=== PATIENT | male | born 1990 | race Caucasian/White ===

== ENCOUNTER 2016-09-01 18:29 | Emergency (ER) | payer BC, MEDICAID ==
[2016-09-01 18:34] VITALS: BP 139/92; PULSE 94; RESP 20; TEMP 98.4
[2016-09-01] MEDS ORDERED: IBUPROFEN 600 MG TAB PO STA (21:21)
[2016-09-01 21:54] LABS: Appearance,Urine Clear (Clear); Bilirubin,Urine Negative (Negative); Glucose,Urine (UA) Negative (Negative); Ketones,Urine Negative (Negative); Leukocyte Esterase,Urine Negative (Negative); Nitrite,Urine Negative (Negative); PH, Urine 6.5 (5.0-8.0); Protein,Urine Negative (Negative); Specific Gravity,Urine 1.016 (1.001-1.035); UA Billing (MACRO vs. MICRO) CHEM; Urobilinogen,Urine <2.0 mg/dL (<2.0)
--- NOTE | 2016-09-01 21:58 | ED ---
Recheck HPI - General Chief Complaint: Recheck/Abnormal Lab/Rx Stated Complaint: infection Time Seen by Provider: 09/01/16 20:46 Source: patient, RN notes reviewed Mode of arrival: ambulatory Limitations: no limitations - History of Present Illness Initial Comments: Patient is a 26-year-old male presents to the emergency room for evaluation. Patient states he's been having sore throat, congestion and swollen lymph nodes in his neck for the past month. Patient states he hasn't had health insurance was not able follow-up with a doctor until now. Patient states he has been taking [id number] cough medicine with no relief of symptoms. Patient denies any fevers. Patient states she has sore throat and ear pain. Patient states he is up to date on his immunizations. Patient denies receiving his influenza vaccine this year. Patient denies abdominal pain, nausea, vomiting, chest pain, shortness of breath. Patient also states he's having some mild burning while urinating. Patient states he has a history of UTI in the past and this feels somewhat similar. Patient states he has a history of syphilis many years ago. Patient denies any other history of STDs. Patient denies any trouble urinating or blood in urine. - Related Data Previous Rx's Medication Instructions Recorded Azithromycin [Zithromax Z-pack] 250 mg PO DIRECTED #6 tab 09/01/16 Allergies Allergy/AdvReac Type Severity Reaction Status Date / Time No Known Allergies Allergy Verified 09/01/16 18:34 Review of Systems ROS Statement: Those systems with pertinent positive or pertinent negative responses have been documented in the HPI. ROS Other: All systems not noted in ROS Statement are negative. Past Medical History Past Medical History: No Reported History Additional Past Medical History / Comment(s): gets headaches often, add dx in 1998 with depression was on meds then taken off of it. History of Any Multi-Drug Resistant Organisms: None Reported Past Surgical History: No Surgical Hx Reported Past Anesthesia/Blood Transfusion Reactions: No Reported Reaction Past Psychological History: ADD/ADHD, Anxiety, Depression Smoking Status: Former smoker Past Alcohol Use History: Occasional Additional Past Alcohol Use History / Comment(s): started smoking at age 21 smokes on and off a pack lasts him a month Past Drug Use History: None Reported - Past Family History Father Additional Family Medical History / Comment(s): smokes/drinks and does'nt go to dr. Mother Family Medical History: Diabetes Mellitus Additional Family Medical History / Comment(s): gallbladder removed General Exam - General Exam Comments Initial Comments: Sitting in exam room in no acute distress. Limitations: no limitations General appearance: alert, in no apparent distress Head exam: Present: atraumatic, normocephalic, normal inspection Eye exam: Present: normal appearance ENT exam: Present: normal exam, normal oropharynx, mucous membranes moist, TM's normal bilaterally, normal external ear exam Neck exam: Present: normal inspection, full ROM, lymphadenopathy (Bilateral anterior cervical) Respiratory exam: Present: normal lung sounds bilaterally. Absent: respiratory distress Cardiovascular Exam: Present: regular rate, normal rhythm, normal heart sounds Extremities exam: Present: normal inspection Back exam: Present: normal inspection Neurological exam: Present: alert, oriented X3, CN II-XII intact, normal gait Psychiatric exam: Present: normal affect, normal mood Skin exam: Present: warm, dry, intact, normal color. Absent: rash Course Vital Signs 09/01/16 18:32 Temperature 98.4 F Pulse Rate 94 Respiratory 20 Rate Blood Pressure 139/92 O2 Sat by Pulse 100 Oximetry Medical Decision Making - Medical Decision Making Patient is a 26-year-old male presents to the emergency room for evaluation of sinus congestion, sore throat and swollen lymph nodes. Patient also complaining of burning while urinating. Urinalysis shows no signs of a urinary tract infection. Rapid strep negative. RSV negative. Patient's symptoms related to sinusitis. Will place patient on antibiotics him follow-up with his primary care provider. Patient states she understands everything that was discussed with him. Return parameters discussed. Case discussed with Dr. Bess. - Lab Data Lab Results 09/01/16 09/01/16 09/01/16 Range/Units 21:30 21:30 21:30 Urine Color Yellow Urine Appearance Clear (Clear) Urine pH 6.5 (5.0-8.0) Ur Specific [place] 1.016 (1.001-1.035) Urine Protein Negative (Negative) Urine Glucose (UA) Negative (Negative) Urine Ketones Negative (Negative) Urine Blood Negative (Negative) Urine Nitrate Negative (Negative) Urine Bilirubin Negative (Negative) Urine Urobilinogen <2.0 (<2.0) mg/dL Ur Leukocyte Esterase Negative (Negative) Influenza Type A RNA Not Detected (Not Detectd) Influenza Type B (PCR) Not Detected (Not Detectd) Group A Strep Rapid Negative (Negative) Disposition Clinical Impression: Sinusitis Disposition: HOME SELF-CARE Condition: Good Instructions: Sinusitis (ED) Additional Instructions: Take antibiotics as directed. Please follow up with primary care provider in 1- 2 days. If any new symptom arises or symptoms worsen, return to ER as soon as possible. Prescriptions: Azithromycin [Zithromax Z-pack] 250 mg PO DIRECTED #6 tab Referrals: Otis Byrne MD [STAFF PHYSICIAN] - 1-2 days Time of Disposition: 22:32
== END 2016-09-01 22:52 | disposition home or self-care (01) ==
LOC: EC 18:29
DX: J32.9 Chronic sinusitis, unspecified (principal); R22.1 Localized swelling, mass and lump, neck; Z87.891 Personal history of nicotine dependence
CPT/HCPCS: 81003; 87081; 87430; 87491; 87502; 87591; 99283

== ENCOUNTER 2016-09-21 12:03 | Emergency (ER) | payer MEDICAID ==
[2016-09-21 13:04] VITALS: BP 146/87; PULSE 69; RESP 20; TEMP 99.2
--- NOTE | 2016-09-21 13:28 | ED ---
General Adult HPI - General Chief complaint: Extremity Injury, Lower Stated complaint: LEFT LEG NUMBNESS Time Seen by Provider: 09/21/16 13:12 Source: patient, RN notes reviewed Mode of arrival: wheelchair Limitations: no limitations - History of Present Illness Initial comments: Patient is 26-year-old male presents to the emergency room for evaluation of the left leg pain and tingling. Patient states he woke up yesterday morning with his left foot feeling numb and pain in his calf. Patient states he went to [facility] where they ordered an ultrasound on his leg to rule out blood clot. Patient states they diagnosed him with Achilles tendinitis and sent him home. Patient states he is still feeling tingling in his left foot. Patient felt that he need to be reevaluated today. Patient denies any certain injury to his foot or lower leg. 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 Patient denies discoloration of his foot. Patient denies smoking. Patient denies taking medications. Patient denies history of diabetes. Patient denies fevers, chills, weakness. Patient denies back pain. Patient denies recent back injury/fall. - Related Data Previous Rx's Medication Instructions Recorded Azithromycin [Zithromax Z-pack] 250 mg PO DIRECTED #6 tab 09/01/16 methylPREDNISolone Dose Pack 4 mg PO DIRECTED #21 package 09/21/16 [Medrol Dose Pack] Allergies Allergy/AdvReac Type Severity Reaction Status Date / Time No Known Allergies Allergy Verified 09/01/16 18:34 Review of Systems ROS Statement: Those systems with pertinent positive or pertinent negative responses have been documented in the HPI. ROS Other: All systems not noted in ROS Statement are negative. Past Medical History Past Medical History: No Reported History Additional Past Medical History / Comment(s): gets headaches often, add dx in 1998 with depression was on meds then taken off of it. History of Any Multi-Drug Resistant Organisms: None Reported Past Surgical History: No Surgical Hx Reported Past Anesthesia/Blood Transfusion Reactions: No Reported Reaction Past Psychological History: ADD/ADHD, Anxiety, Depression Smoking Status: Former smoker Past Alcohol Use History: Occasional Additional Past Alcohol Use History / Comment(s): started smoking at age 21 smokes on and off a pack lasts him a month Past Drug Use History: None Reported - Past Family History Father Additional Family Medical History / Comment(s): smokes/drinks and does'nt go to dr. Mother Family Medical History: Diabetes Mellitus Additional Family Medical History / Comment(s): gallbladder removed General Exam - General Exam Comments Initial Comments: Sitting in exam room in no acute distress. Limitations: no limitations General appearance: alert, in no apparent distress Head exam: Present: atraumatic, normocephalic, normal inspection Eye exam: Present: normal appearance ENT exam: Present: normal exam Neck exam: Present: normal inspection Respiratory exam: Absent: respiratory distress Left Hip exam: Present: normal inspection Upper Leg exam: Present: normal inspection Knee exam: Present: normal inspection Lower Leg exam: Present: normal inspection, full ROM (Full passive and active flexion and extension of knee and ankle). Absent: tenderness Ankle exam: Present: normal inspection, full ROM Foot/Toe exam: Present: normal inspection, full ROM. Absent: swelling Neurovascular tendon exam: Absent: pulse deficit (2+ dorsal pedal and posterior tibial pulses), abnormal cap refill (Capillary refill less than 2 seconds) Back exam: Present: normal inspection Neurological exam: Present: alert, oriented X3, CN II-XII intact Expanded Motor strength exam: LUE: 5, LLE: 5 Psychiatric exam: Present: normal affect, normal mood Skin exam: Present: warm, dry, intact, normal color. Absent: rash Course Vital Signs 09/21/16 09/21/16 13:01 13:47 Temperature 99.2 F 99.2 F Pulse Rate 69 69 Respiratory 20 20 Rate Blood Pressure 146/87 146/87 O2 Sat by Pulse 100 100 Oximetry Medical Decision Making - Medical Decision Making Patient is a 26-year-old male presents to the emergency room for evaluation of left-lower leg paresthesias. Patient had an ultrasound [facility] was negative for DVT. The patient on a course of steroid taper and have him follow- up with his primary care provider or campaign management specialist. Patient states he understands everything that was discussed with him. Return parameters discussed. Case discussed with Dr. Arriaza. Disposition Clinical Impression: Left leg paresthesias Disposition: HOME SELF-CARE Condition: Good Instructions: Paresthesia (ED) Additional Instructions: Take medications as directed. Please follow up with primary care provider or campaign management specialist for further evaluation if symptoms do not improve in 7-10 days. If any new symptom arises or symptoms worsen, return to ER as soon as possible. Prescriptions: methylPREDNISolone Dose Pack [Medrol Dose Pack] 4 mg PO DIRECTED #21 package Referrals: Chad Amezcua MD [STAFF PHYSICIAN] - 09/28/16 Time of Disposition: 13:35
== END 2016-09-21 13:52 | disposition home or self-care (01) ==
LOC: EC 12:03
DX: R20.2 Paresthesia of skin (principal); Z87.891 Personal history of nicotine dependence
CPT/HCPCS: 99283

== ENCOUNTER → 2016-10-05 | Outpatient (CLI) | payer MEDICAID ==
--- NOTE | 2016-10-05 16:21 | MR ---
EXAMINATION TYPE: MR lumbar spine wo con DATE OF EXAM: 10/05/2016 7:26 AM COMPARISON: NONE HISTORY: low back pain and radiculopathy per order. Pain with weakness and numbness causing partial l eft leg numbness since September 20, 2016 per patient. TECHNIQUE: Multiplanar, multisequence imaging of the lumbar spine is performed without IV contrast. FINDINGS: Sagittal images of the lumbar spine show vertebral body heights and alignment to appear sat isfactory. The intervertebral discs demonstrate normal heights and hydration. No suspicious posterio r disc herniations are seen on sagittal images. The conus medullaris is normal in position and signal ending at superior L1 vertebral body level. The bone marrow signal intensity is within normal limit s. No significant spurring is noted. Axial images show no focal disc disease, or facet degenerative change at any lumbar level. There is no spinal canal stenosis, neural foraminal narrowing, or evidence of nerve root compromise. IMPRESSION: Negative MRI of the lumbar spine.
== END | disposition home or self-care (01) ==
LOC: RADMRIMAIN 06:36
PROVIDERS: ATTEND Physical Medicine & Rehabilitation
DX: M54.17 Radiculopathy, lumbosacral region (principal); M54.5 Low back pain
CPT/HCPCS: 72148